=== PATIENT | male | born 1930 | race Two or more races ===

== ENCOUNTER 2019-01-04 21:51 | Inpatient (IN) | payer OTHER ==
[~2019-01-04] VITALS: Ht 165.1 cm; Wt 56.3 kg
--- NOTE | 2019-01-04 21:48 | Emergency Room Report ---
History of Present Illness General Source: Patient Present Illness HPI Patient is an 88-year-old male brought in by [facility] ambulance after increased generalized weakness and decreased p.o. intake. Patient reportedly had been losing weight. Patient was sent in for further evaluation. Patient was noted to have gradual onset of symptoms. Patient is Turkish speaker. Allergies: Coded Allergies: No Known Allergies (Unverified , 01/04/19) Patient History Reviewed Nursing Documentation: PMH: Agreed; PSxH: Agreed Physical Exam Sp02 EP Interpretation: reviewed, normal General Appearance: normal inspection, well appearing, no apparent distress, alert, Chronically Ill Head: atraumatic ENT: normal ENT inspection, hearing grossly normal, normal voice Neck: normal inspection, full range of motion, supple, no bony tend Respiratory: normal inspection, lungs clear, normal breath sounds, no respiratory distress, no retraction, no wheezing Cardiovascular #1: regular rate, rhythm, no edema Gastrointestinal: normal inspection, normal bowel sounds, non tender, soft, no guarding, no hernia Genitourinary: no CVA tenderness Musculoskeletal: normal inspection, back normal, normal range of motion Neurologic: normal inspection, alert, responsive, sports coordinator III-XII nml as tested, speech normal Psychiatric: normal inspection, judgement/insight normal, mood/affect normal Skin: normal inspection, normal color, no rash Medical Decision Making Diagnostic Impression: Primary Impression: Generalized weakness Additional Impressions: Pancreatitis Failure to thrive ER Course . Patient presented for generalized weakness. Differential diagnosis include was not limited to electrolyte abnormality, hypoglycemia, hypothyroidism among others. Because of complexity of patient's case laboratory testing and imaging studies were ordered. EKG interpreted by me showed normal sinus rhythm with a rate of 80 with right bundle branch block. Patient's laboratory testing was notable for elevated lipase consistent with pancreatitis. Patient started on IV fluids. Dr. Yoel Palumbo contacted for inpatient management due to primary care physician Labs Test 01/04/19 22:00 01/04/19 22:10 White Blood Count 6.2 K/UL (4.8-10.8) Red Blood Count 4.62 M/UL (4.70-6.10) Hemoglobin 12.4 G/DL (14.2-18.0) Hematocrit 39.2 % (42.0-52.0) Mean Corpuscular Volume 85 FL (80-99) Mean Corpuscular Hemoglobin 26.7 PG (27.0-31.0) Mean Corpuscular Hemoglobin Concent 31.6 G/DL (32.0-36.0) Red Cell Distribution Width 16.0 % (11.6-14.8) Platelet Count 239 K/UL (150-450) Mean Platelet Volume 5.6 FL (6.5-10.1) Neutrophils (%) (Auto) 38.3 % (45.0-75.0) Lymphocytes (%) (Auto) 53.5 % (20.0-45.0) Monocytes (%) (Auto) 4.4 % (1.0-10.0) Eosinophils (%) (Auto) 2.7 % (0.0-3.0) Basophils (%) (Auto) 1.1 % (0.0-2.0) Prothrombin Time 10.3 SEC (9.30-11.50) Prothromb Time International Ratio 1.0 (0.9-1.1) Activated Partial Thromboplast Time 28 SEC (23-33) Sodium Level 140 MMOL/L (136-145) Potassium Level 4.3 MMOL/L (3.5-5.1) Chloride Level 104 MMOL/L (98-107) Carbon Dioxide Level 31 MMOL/L (21-32) Anion Gap 5 mmol/L (5-15) Blood Urea Nitrogen 22 mg/dL (7-18) Creatinine 1.0 MG/DL (0.55-1.30) Estimat Glomerular Filtration Rate mL/min (>60) Glucose Level 104 MG/DL (74-106) Calcium Level 9.1 MG/DL (8.5-10.1) Total Bilirubin 0.6 MG/DL (0.2-1.0) Aspartate Amino Transf (AST/SGOT) 15 U/L (15-37) Alanine Aminotransferase (ALT/SGPT) 17 U/L (12-78) Alkaline Phosphatase 96 U/L (46-116) Total Protein 7.2 G/DL (6.4-8.2) Albumin 3.2 G/DL (3.4-5.0) Globulin 4.0 g/dL Albumin/Globulin Ratio 0.8 (1.0-2.7) Lipase 515 U/L (73-393) Urine Color Pale yellow Urine Appearance Clear Urine pH 5 (4.5-8.0) Urine Specific Grady 1.020 (1.005-1.035) Urine Protein Negative (NEGATIVE) Urine Glucose (UA) Negative (NEGATIVE) Urine Ketones Negative (NEGATIVE) Urine Blood Negative (NEGATIVE) Urine Nitrite Negative (NEGATIVE) Urine Bilirubin Negative (NEGATIVE) Urine Urobilinogen Normal MG/DL (0.0-1.0) Urine Leukocyte Esterase Negative (NEGATIVE) EKG Diagnostic Results Rate: normal Rhythm: NSR ST Segments: no acute changes Status: improved Disposition: ADMITTED INPATIENT Deon Coello MD Jan 04, 2019 21:48
[2019-01-04 21:51] VITALS: BP 137/82
--- NOTE | 2019-01-04 21:51 | NUR ---
ED Nurse Note: Pt was BIBA from SNF. C/O Failure to thrive for 2 days. Pt is A/O X3, confused. Room air with sat 97%. Incontinent, skin intact, weakness on both legs. Vital signs stable at this time, waitng for orders.
--- NOTE | 2019-01-04 21:52 | NUR ---
ED Nurse Note: Pt was BIBA from SNF/ [facility]. C/O Failure to thrive for 2 days. Pt is A/O X3, confused. Room air with sat 97%. Incontinent, skin intact, weakness on both legs. Vital signs stable at this time, waitng for orders.
[2019-01-04] MEDS ORDERED: PANTOPRAZOLE SO40 MG ORAL (22:06)
[2019-01-04] MEDS ORDERED: MILK OF MA2400 MG/10 ORAL (22:06)
[2019-01-04] MEDS ORDERED: FLEET ENEMA133 ML RECTAL (22:06)
[2019-01-04] MEDS ORDERED: TYLENOL325 MG ORAL (22:06)
[2019-01-04] MEDS ORDERED: VITAMIN C500 M1 ORAL (22:06)
[2019-01-04] MEDS ORDERED: HYDRALAZINE HCL25 M1 ORAL (22:06)
[2019-01-04] MEDS ORDERED: dulcolax supp (22:06)
[2019-01-04] MEDS ORDERED: ASPIRIN81 MG ORAL (22:06)
[2019-01-04] MEDS ORDERED: MULTIVITAMINS1 EAC8 ORAL (22:06)
[2019-01-04 22:09] LABS: BASOPHILS % (AUTO) 1.1 % (0.0-2.0); EOSINOPHILS % (AUTO) 2.7 % (0.0-3.0); HEMATOCRIT 39.2 % (42.0-52.0); HEMOGLOBIN 12.4 G/DL (14.2-18.0); LYMPHOCYTES % (AUTO) 53.5 % (20.0-45.0); MEAN CORPUSCULAR VOLUME 85 FL (80-99); MONOCYTES % (AUTO) 4.4 % (1.0-10.0); NEUTROPHILS % (AUTO) 38.3 % (45.0-75.0); PLATELET COUNT 239 K/UL (150-450); RED BLOOD COUNT 4.62 M/UL (4.70-6.10); WHITE BLOOD COUNT 6.2 K/UL (4.8-10.8)
--- NOTE | 2019-01-04 22:10 | NUR ---
ED Nurse Note: Blood and urine sample collected and sent to Lab. EKG done.
[2019-01-04 22:18] LABS: APPEARANCE,URINE CLEAR; BILIRUBIN, URINE NEGATIVE (NEGATIVE); COLOR,URINE PALE YELLOW; GLUCOSE, URINE (UA) NEGATIVE (NEGATIVE); KETONES,URINE NEGATIVE (NEGATIVE); LEUKOCYTE ESTERASE ,URINE NEGATIVE (NEGATIVE); NITRITE,URINE NEGATIVE (NEGATIVE); PH,URINE 5 (4.5-8.0); PROTEIN,URINE NEGATIVE (NEGATIVE); UROBILINOGEN,URINE NORMAL MG/DL (0.0-1.0)
[2019-01-04 22:21] LABS: ANION GAP 5 mmol/L (5-15); BLOOD UREA NITROGEN 22 mg/dL (7-18); CALCIUM 9.1 MG/DL (8.5-10.1); CARBON DIOXIDE 31 MMOL/L (21-32); CHLORIDE 104 MMOL/L (98-107); POTASSIUM 4.3 MMOL/L (3.5-5.1); SODIUM 140 MMOL/L (136-145)
[2019-01-04 22:26] LABS: ALANINE AMINOTRANSFERASE 17 U/L (12-78); ALBUMIN 3.2 G/DL (3.4-5.0); ALBUMIN/GLOBULIN RATIO 0.8 (1.0-2.7); ALKALINE PHOSPHATASE 96 U/L (46-116); ASPARTATE AMINO TRANSFERASE 15 U/L (15-37); BILIRUBIN,TOTAL 0.6 MG/DL (0.2-1.0)
--- NOTE | 2019-01-04 22:30 | NUR ---
ED Nurse Note: Pt had a BM, clearned and changed linen.
--- NOTE | 2019-01-04 23:55 | NUR ---
TRANSFER TO FLOOR: Patient transferred to [facility] as ordered . Report given to Lexi/AYUSH. Belongings sent with Pt and rechecked with RN. Pt is A/O X 3. VSS.
[2019-01-05 00:45] VITALS: BP 102/58
--- NOTE | 2019-01-05 01:09 | NUR ---
NURSE NOTES: Admitted a 88 year old male, confused, no complaints of pain. Instructed the use of call light. Call light and needs in reach, Bed in lowest position, lock engaged and alarm on. Spoke with Dr. Palumbo, will order more in AM when he sees the patient, orders obtained and carried out.
[2019-01-05] MEDS ORDERED: Milk of Magnesia 30ml Ud ORAL PRN (01:15)
[2019-01-05] MEDS ORDERED: Fleet's Enema 133ml RECTAL PRN (01:15)
[2019-01-05 04:00] VITALS: BP 111/50
[2019-01-05] MEDS: HydrALAZINE 25mg tab ORAL SCH ×3 (05:11→21:27)
--- NOTE | 2019-01-05 07:36 | NUR ---
HAND-OFF: Report given to AYUSH Hernandez.
--- NOTE | 2019-01-05 07:40 | NUR ---
NURSE NOTES: Received patient in bed, awake, verbally responsive. beninese and Ivorian speaking. Patient is alert and oriented x1 and confused. IV intact, no s/s of infiltration. Patient had BM and incontinent care done. Skin intact. Bed is in lowest position and locked. Call light and personnel items within reach. Will continue plan of care.
[2019-01-05 08:00] VITALS: BP 119/50
--- NOTE | 2019-01-05 08:21 | NUR ---
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 FAILURE TO THRIVE VS: BP 115/55, P 80, T 98.6, RR 18, SpO2 94 on Room Air RBC 4.62, Hgb 12.4, Hct 39.2, BUN 22 IS:APRESOLINE 25mg PROTONIX 40mg ADMITTED TO MED/SURG DC PLAN:RETURN TO [facility]
[2019-01-05] MEDS: Ascorbic Acid 500mg tab ORAL SCH (08:37)
[2019-01-05] MEDS: Aspirin Baby 81mg ORAL SCH (08:37)
[2019-01-05] MEDS: Multivitamin w/Minerals tab ORAL SCH (08:37)
--- NOTE | 2019-01-05 09:40 | NUR ---
NURSE NOTES: Patient seen by Dr. Palumbo and RN received orders. Order read back and carried out.
--- NOTE | 2019-01-05 11:33 | NUR ---
RD ASSESSMENT & RECOMMENDATIONS SEE CARE ACTIVITY FOR COMPLETE ASSESSMENT DAILY ESTIMATED NEEDS: Needs based on Pancreatitis/ 55.2kg 25-30 kcals/kg 1809-0555 total kcals 1-1.5 g protein/kg 55-82 g total protein 25-30 mL/kg 7917-7931 total fluid mLs NUTRITION DIAGNOSIS: Inadequate oral intake R/T clinical condition, decreased appetite as evidenced by pt admitted w/ FTT dx, + wt loss per MD note, amount and time frame not specified, currently on CLD w/ dx of pancreatitis. CURRENT DIET:CLEAR LIQUID DIET PO DIET RECOMMENDATIONS: Advance diet as tolerated per MD (texture per NURSE INFORMATICIST) ADDITIONAL RECOMMENDATIONS: * Calibrated bedscale wt for accurate CBW, weekly wt monitoring -> possible recent wt loss * Monitor PO tolerance and acceptance closely * Ensure CLEAR TID while on CLD * Add Ensure ENLIVE TID w/ meals once diet advances * Consider NURSE INFORMATICIST eval for appropriate texture
--- NOTE | 2019-01-05 11:37 | NUR ---
*-* INSURANCE *-* ALL CLINICALS, REVIEWS HAVE BEEN FAXED TO: TERESITA LIU F:[phone]
[2019-01-05 12:00] VITALS: BP 132/64
[2019-01-05 16:00] VITALS: BP_SYST 122; BP_SYST 135; BP_DIAS 61; BP_DIAS 66
--- NOTE | 2019-01-05 19:16 | NUR ---
HAND-OFF: Report given to
--- NOTE | 2019-01-05 19:32 | NUR ---
NURSE NOTES: Patient in awake in bed, confused and anxious. Reorientation done. Instructed the use of call light. Call light and needs in reach. Bed in lowest position, lock engaged and alarm on. Will continue to monitor.
[2019-01-05 20:00] VITALS: BP 157/72
--- NOTE | 2019-01-05 20:00 | History and Physical Report ---
DATE OF ADMISSION: 01/04/2019 HISTORY OF PRESENT ILLNESS: This is an elderly male, came with generalized weakness, abdominal pain, and failure to thrive. He was found to have acute pancreatitis. PAST MEDICAL HISTORY: Significant for hypertension, GERD, coronary artery disease. MEDICATIONS: See the list. PHYSICAL EXAMINATION: GENERAL: This is an elderly male, who is currently in the bed, confused. VITAL SIGNS: Blood pressure 119/54, pulse 54, temperature 97. HEENT: NAD. CHEST: Bilaterally clear. CARDIOVASCULAR: Regular rhythm. ABDOMEN: Soft. Mild epigastric tenderness. EXTREMITIES: GENITOURINARY: Deferred. LABORATORY EXAMINATION: White count 6.2, hemoglobin 12, hematocrit 39, platelets are 239. Chemistry panel; sodium 140, potassium 4.3, BUN 22, creatinine 1, glucose . Lipase was 515. ASSESSMENT: 1. Abdominal pain. 2. Failure to thrive. 3. Generalized weakness. PLAN: 1. We will have the soft diet. 2. Consider GI consult. 3. Add antibiotics. 4. Followup the labs. Yoel Palumbo M.D. DR: Robert JOB#: [id number] CC:
[2019-01-05] MEDS: LORazepam 0.5mg tab ORAL PRN (21:27)
[2019-01-06] VITALS: BP 120/63
[2019-01-06 04:00] VITALS: BP 110/62
[2019-01-06] MEDS: HydrALAZINE 25mg tab ORAL SCH ×3 (06:00→21:08)
--- NOTE | 2019-01-06 07:31 | NUR ---
HAND-OFF: Report given to AYUSH Dominique
--- NOTE | 2019-01-06 07:40 | NUR ---
NURSE NOTES: PT REQUIRED TO BE FEED THIS MORNING. SPEAKS BOTH DANISH AND YAKUT PER REPORT OF OUTGOING NURSE PT IS COMBATIVE DURING CARE.. PT IS RESTLESS UPON THIS WRITING. BED IS IN SAFE POSITION. CURRENT PLAN OF CARE WILL BE FOLLOWED
[2019-01-06 08:00] VITALS: BP 139/64
[2019-01-06] MEDS: Multivitamin w/Minerals tab ORAL SCH (09:16)
[2019-01-06] MEDS: LORazepam 0.5mg tab ORAL PRN (09:16)
[2019-01-06] MEDS: Ascorbic Acid 500mg tab ORAL SCH (09:16)
[2019-01-06] MEDS: Aspirin Baby 81mg ORAL SCH (09:16)
[2019-01-06 12:00] VITALS: BP 131/76
[2019-01-06] MEDS: Levofloxacin 250mg/D5W 50ml IVPB SCH (12:07)
--- NOTE | 2019-01-06 12:14 | General Progress Note ---
Assessment/Plan Assessment/Plan Assessment - Difficult to evaluate - patient confused and fights off the examiner - mild elevation in lipase noted, but doubt pancreatitis - will follow and evaluate - seems to have a degree of delirium vs dementia Recommendations - repeat lipase level - CT imaging (doubt will cooperate with ultrasound) - consider psychiatry evaluation - po diet as tolerated - advance slowly Thank you Angela Cohn MD Subjective Allergies: Coded Allergies: No Known Allergies (Unverified , 01/04/19) Objective Last 24 Hour Vital Signs Date Time Temp Pulse Resp B/P (MAP) Pulse Ox O2 Delivery O2 Flow Rate FiO2 01/06/19 09:00 Room Air 01/06/19 08:00 98.1 65 18 139/64 (89) 100 01/06/19 06:00 110/62 01/06/19 04:00 97.3 58 17 110/62 (78) 98 01/06/19 00:00 97.8 60 16 120/63 (82) 98 01/05/19 21:27 143/74 01/05/19 21:00 Room Air 01/05/19 20:00 97.2 73 20 157/72 (100) 98 01/05/19 16:00 98.6 57 19 122/61 (81) 99 01/05/19 14:00 118/64 Intake and Output 01/05/19 01/06/19 19:00 07:00 Intake Total 1585 ml 900 ml Balance 1585 ml 900 ml Intake Oral 960 ml IV Total 625 ml 900 ml # Voids 3 3 # Bowel Movements 1 Height (Feet): 5 Height (Inches): 5.00 Weight (Pounds): 124 Boone Cohn MD Jan 06, 2019 12:14
--- NOTE | 2019-01-06 12:56 | NUR ---
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 FAILURE TO THRIVE VS: BP 110/60, P 58, T 97.3, RR 17, SpO2 98 IS:LEVOFLOXACIN 50ml IVPB ATIVAN 0.5mg NS x1L IV PROTONIX 40mg MED/SURG STATUS
[2019-01-06] MEDS ORDERED: 1/2 NS 1000ml IV ONE (14:36)
--- NOTE | 2019-01-06 15:42 | Diagnostic Imaging Report ---
Indication: Abdominal pain Technique: Continuous helical transaxial imaging of the abdomen and pelvis was obtained from the lung bases to the pubic symphysis. No intravenous contrast was administered. Coronal 2-D reformats were also obtained. Automatic Exposure Control was utilized. Total Dose length Product (DLP): 541.[address] Dose Index Volume (CTDIvol): 11.05 mGy Comparison: none Findings: There is a distention of the esophagus with the some wall thickening noted. Consider EGD for evaluation of this. There are innumerable gallstones. There is mild atelectasis posterior left lung base. There is no hydronephrosis or evidence of nephrolithiasis. Aortoiliac calcifications are moderate in degree. There is a moderate degree of fecal impaction with the dilatation of the rectum and wall thickening. Prostate calcification noted. Urinary bladder is unremarkable. There is narrowing of intervertebral discs and accompanying endplate osteophyte formation. Hypertrophied facet joints also demonstrated.. There is a 2.6 x 4.6 cm lipoma between the right gluteus minimus and neck mediastinum muscles. There is a right total hip prosthesis. Small bilateral inguinal hernias containing fat are noted. IMPRESSION: Moderate retention of feces and fecal impaction with evidence of proctitis. Mildly distended esophagus with wall thickening. Consider EGD. Cholelithiasis. 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 Small bilateral inguinal hernias containing fat. Atherosclerotic vascular disease The CT scanner at [facility] is accredited by the [employer] and the scans are performed using dose optimization techniques as appropriate to a performed exam including Automatic Exposure control.
[2019-01-06 16:00] VITALS: BP 124/96
--- NOTE | 2019-01-06 16:00 | NUR ---
NURSE NOTES: Pt required assistance with all ADLs. Behavior redirectable after use of Ativan 0.5 mg po. Medications crushed and placed in food for facilitation of administration. Pt required to be fed both breakfast and lunch. By dinner time pt appeared more alert as well as demonstrating a clearer mental clarity, speaking both saudi arabian and croatian and requesting coffee. Pt is incontinent of both bowel and bladder,. Seen by Dr Palumbo today, possible pending discharge
--- NOTE | 2019-01-06 16:03 | NUR ---
*-* INSURANCE *-* ALL CLINICALS, REVIEWS HAVE BEEN FAXED TO: TERESITA LIU F:[phone]
--- NOTE | 2019-01-06 19:50 | NUR ---
NURSE NOTES: Patient alert and awake x2, nigerian speaking on room air, no sign of shortness of breath; no sign of distress; side rails up x2, Bed locked and in lowest position. Will keep monitoring.
--- NOTE | 2019-01-06 20:19 | NUR ---
HAND-OFF: Report given to Mitra PEACOCK.
[2019-01-06 20:20] VITALS: BP 118/62
[2019-01-07] VITALS: BP 128/64
[2019-01-07 04:00] VITALS: BP 139/58
--- NOTE | 2019-01-07 04:36 | Progress Note ---
DATE: 01/06/2019 SUBJECTIVE: This is an elderly male, who is currently more awake, comfortable and he was confused. He was given dose of Ativan, now he is much calm and quieter and cooperative. OBJECTIVE: VITAL SIGNS: Blood pressure is 139/64 and pulse 65. No fever. CHEST: Bilaterally clear. CARDIOVASCULAR: Regular rhythm. ABDOMEN: Soft. EXTREMITIES: CCE. NEUROLOGIC: No focal deficit. ASSESSMENT: 1. Altered mental status. 2. Failure to thrive. 3. UTI. 4. Dehydration. PLAN: 1. Continue current treatment. 2. Discontinue IV fluids. 3. Discharge plan to SNF. Yoel Palumbo M.D. DR: IOANA JOB#: [id number] CC:
[2019-01-07] MEDS: HydrALAZINE 25mg tab ORAL SCH ×2 (06:00→13:43)
--- NOTE | 2019-01-07 07:30 | Consultation ---
DATE OF CONSULTATION: 01/06/2019 GASTROENTEROLOGY CONSULTATION CONSULTING PHYSICIAN: Boone Cohn M.D. REFERRING PHYSICIAN: George Palumbo M.D. CHIEF COMPLAINT: I was asked to see this patient by Dr. George Palumbo for evaluation of failure to thrive. HISTORY OF PRESENT ILLNESS: The patient is an 88-year-old man who was brought into the hospital with weakness, abdominal pain, and failure to thrive. The patient has had some mild degree of elevation in lipase. During my examination, the patient appeared to be withdrawn, confused, and agitated when examined. He would fight off the examiner and also the adjacent nurse and would not allow a proper evaluation. Also, could not give much details of his overall health. PAST MEDICAL HISTORY: History of hypertension, gastroesophageal reflux disease, and coronary artery disease. MEDICATIONS: See chart list for details. FAMILY HISTORY: Noncontributory. SOCIAL HISTORY: He has had no chart history of smoking or drinking. REVIEW OF SYSTEMS: Otherwise unobtainable from the patient. PHYSICAL EXAMINATION: GENERAL: Debilitated. Possibly delirious white man, seen in his room with the nurse at bedside. HEENT: Normocephalic and atraumatic. NECK: Supple. CHEST: Revealed coarse breath sounds. CARDIOVASCULAR: Difficult to evaluate due to the patient's fighting. ABDOMEN: Hard to evaluate due to the patient's fighting. EXTREMITIES: Revealed no edema. LABORATORY DATA: Noted. ASSESSMENT: This patient appears to be with delirium and agitation. It is difficult to evaluate on his health at this time. It seems he fights off the examiner's attempts to examine. Psychiatry service was involved to evaluate the patient's behavior. In the meantime, oral diet can be given and he eventually can be monitored. As he did very poorly, further evaluation and management steps including nasogastric tube placement can be considered. RECOMMENDATIONS: Per above discussion and per orders written in the chart. Thank you for asking me to participate in the care of this patient. Boone Cohn M.D. DR: JENNIFER JOB#: [id number] CC: GONZÁLEZ
--- NOTE | 2019-01-07 07:49 | NUR ---
NURSE NOTES: Patient received in stable condition, breathing unlabored on room air. Eating breakfast in bed. IV site on right arm patent and intact, covered with kerlix. Denies pain at this time. Call light placed within reach. Bed locked in lowest position, will continue to monitor.
[2019-01-07 08:00] VITALS: BP 134/73
[2019-01-07] MEDS: Ascorbic Acid 500mg tab ORAL SCH (08:10)
[2019-01-07] MEDS: Aspirin Baby 81mg ORAL SCH (08:10)
[2019-01-07] MEDS: Multivitamin w/Minerals tab ORAL SCH (08:10)
--- NOTE | 2019-01-07 09:44 | NUR ---
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 FAILURE TO THRIVE VS: BP 139/58, P 60, T 97.2, RR 18, SpO2 96 IS: LEVOFLOXACIN 50ml IVPB ATIVAN 0.5mg NS x1L IV PROTONIX 40mg APRESOLINE 25mg MED/SURG STATUS
[2019-01-07] MEDS: Levofloxacin 250mg/D5W 50ml IVPB SCH (10:48)
[2019-01-07 12:00] VITALS: BP 144/76
[2019-01-07] MEDS ORDERED: DULCOLAX10 MG RC (12:19)
--- NOTE | 2019-01-07 12:54 | NUR ---
DISCHARGE PLANNING FAXED PT. CHART TO [facility]
--- NOTE | 2019-01-07 13:53 | NUR ---
*-* INSURANCE *-* ALL CLINICALS HAVE BEEN FAXED TO: TAMARA Miller [phone]
--- NOTE | 2019-01-07 14:26 | Cardiology Report ---
APPROVED REPORT EKG Measurement Heart [id number] Sinus rhythm with 1st degree AV block Left axis deviation Right bundle branch block Abnormal ECG
[2019-01-07 16:00] VITALS: BP 111/76
--- NOTE | 2019-01-07 16:44 | NUR ---
DISCHARGE PLANNED PT. WILL DC TO [facility] ROOM 8A SKILLED T- FOR NURSE TO NURSE REPORT CALLED VIANCA QUIROGA (FRIEND) TO INFORM ABOUT PT DISCHARGE BUT WAS UNABLE TO REACH SO A MESSAGE WAS LEFT AMBULANCE HAS BEEN ARRANGED FOR 1829 BUSINESS OBJECTS
--- NOTE | 2019-01-07 18:20 | General Progress Note ---
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 eating more no vomiting Objective Last 24 Hour Vital Signs Date Time Temp Pulse Resp B/P (MAP) Pulse Ox O2 Delivery O2 Flow Rate FiO2 01/07/19 16:00 98.2 85 20 111/76 (88) 95 01/07/19 13:43 144/76 01/07/19 12:00 97.2 70 18 144/76 (98) 95 01/07/19 09:00 Room Air 01/07/19 08:00 97.2 63 20 134/73 (93) 96 01/07/19 06:00 139/58 01/07/19 04:00 97.5 62 18 139/58 (85) 97 01/07/19 00:00 97.5 60 18 128/64 (85) 97 01/06/19 21:08 118/62 01/06/19 21:00 Room Air 01/06/19 20:20 98.7 82 18 118/62 (80) 94 Intake and Output 01/06/19 01/07/19 18:59 06:59 Intake Total 785 ml Balance 785 ml Intake Oral 360 ml IV Total 425 ml # Voids 3 2 # Bowel Movements 1 Height (Feet): 5 Height (Inches): 5.00 Weight (Pounds): 124 Objective Thin man NCAT supple CTA RRR soft ND NT no edema Boone Cohn MD Jan 07, 2019 18:20
[2019-01-07] MEDS ORDERED: Sorbitol Solution UD 30ml ORAL SCH (18:30)
--- NOTE | 2019-01-07 19:26 | NUR ---
NURSE NOTES: Patient discharged to [facility] ARU accompanied by ambulance personnel. IV safely removed, covered with gauze and tape. Belongings reviewed and confirmed by bedside. Patient noted to be in stable condition, defines pain. Report given to Humaira PEACOCK.
--- NOTE | 2019-01-07 19:28 | NUR ---
NURSE NOTES: Received report from AYUSH Pham. Pt will be being transferred to [facility] also known as [facility]. Pt is clean in supine position and awake, alert x 2. Czech speaking. IV removed and pt in stable condition for transfer, on room air, transferred to [facility].
--- NOTE | 2019-01-07 21:30 | Progress Note ---
DATE: 01/07/2019 SUBJECTIVE: This is a elderly male, currently in the bed, comfortable. PHYSICAL EXAMINATION: VITAL SIGNS: Blood pressure 144/76, pulse 70, no fever. CHEST: Bilaterally clear. CARDIOVASCULAR: Regular rhythm. ABDOMEN: Soft. EXTREMITIES: CCE. NEUROLOGICALLY: No focal deficit. ASSESSMENT AND PLAN: 1. Altered mental status. 2. Failure to thrive. 3. Dehydration. 4. Urinary tract infection. PLAN: 1. We will continue p.o. antibiotics. 2. Discharge plan to SNF. Yoel Palumbo M.D. DR: Robert JOB#: [id number] CC:
--- NOTE | 2019-01-10 13:46 | Discharge Summary ---
Discharge Summary Discharge Summary _ DATE OF ADMISSION: 01/04/2019 DATE OF DISCHARGE: 01/07/2019 DISCHARGED BY: Dr. Palumbo REASON FOR ADMISSION: 88 years old male , resident of alf facility, was brought in for evaluation due to increased generalized weakness and decreased oral intake. Upon evaluation in emergency department vital signs were stable. Laboratory workup revealed no leukocytosis , hemoglobin 12.4, hematocrit 39.2. Stable electrolytes. BUN 22, creatinine 1.0. Glucose 104. Stable LFT. Urinalysis revealed no evidence of urinary tract infection. EKG revealed normal sinus rhythm, no acute ischemic changes. Albumin 3.2. Patient was admitted for further management. CONSULTANTS: GI specialist Dr. Cohn [facility] COURSE: Patient admitted to medical surgical floor. Patient started on the IV hydration. GI consult was requested. CT of the abdomen and pelvis revealed moderate retention of feces with fecal impaction and evidence of proctitis. Mildly distended esophagus with wall thickening. Cholelithiasis. Lumbar spondylosis. Prostate calcification. Status post right total hip arthroplasty. Small bilateral inguinal hernia containing fat. Patient initially with delirium and agitation , was difficult to evaluate as per GI specialist. Urinalysis was negative for UTI. Patient was still on empiric antibiotic for possible UTI. Intimal lipase with mild elevation, repeated lipase stable. At this time patient slowly started on diet and was advanced as tolerated. Delirium improved. Bowel regimen instituted . Anorexia improved. Nutritional assessment revealed high risk for malnutrition. Band Sawmill Operator recommendations regarding protein supplements implemented in plan of care. For mildly distended esophagus, noted on CT, GI specialist recommended EGD, which can be done as outpatient. Patient started on GI prophylaxis. Antiemetic provided as needed. Patient was able to tolerate diet. Blood pressure was managed with hydralazine. Supportive care provided. Pain management was addressed. Patient clinically stabilized, mental status improved . Patient was stable for discharge to alf facility, consider FLIGHT COMMUNICATIONS OPERATOR if family agrees. FINAL DIAGNOSES: Fecal impaction Dehydration Mildly distended esophagus /on CT scan Anorexia -improving Altered mental status with delirium - improving Hypertension DISCHARGE MEDICATIONS: See Medication Reconciliation list. DISCHARGE INSTRUCTIONS: Patient was discharged to the alf facility. Follow up with medical doctor at the facility. I have been assigned to dictate discharge summary for this account. I was not involved in the patient's management. Ginny Dalton NP Jan 10, 2019 13:46
== END 2019-01-07 20:00 | disposition short-term general hospital (02) | DRG 390 ==
LOC: EDBD 21:51 → EMR 22:01 → 4E 23:25 → EDBEDREQ 23:36 → 4E 01-05 00:10
DX: K56.41 Fecal impaction (principal); E86.0 Dehydration; R62.7 Adult failure to thrive; K22.8 Other specified diseases of esophagus; R63.0 Anorexia; R41.0 Disorientation, unspecified; R45.1 Restlessness and agitation; I10 Essential (primary) hypertension; K21.9 Gastro-esophageal reflux disease without esophagitis; I25.10 Atherosclerotic heart disease of native coronary artery without angina pectoris; K80.20 Calculus of gallbladder without cholecystitis without obstruction; M47.896 Other spondylosis, lumbar region; Z96.641 Presence of right artificial hip joint; K40.20 Bilateral inguinal hernia, without obstruction or gangrene, not specified as recurrent; Z68.23 Body mass index [BMI] 23.0-23.9, adult
CPT/HCPCS: 36415; 74176; 80053; 81003; 83690; 85025; 85610; 85730; 87081; 93005; 99285